=== PATIENT | female | born 1990 | race Caucasian/White ===

== ENCOUNTER 2022-08-31 09:17 | Day surgery (SDC) | payer OTHER ==
[2022-08-30 08:55] LABS: Basophils # (auto) 0 10 ^3/uL (0-0.2); Basophils % (auto) 0.6 % (0.0-2.0); Eosinophils # (auto) 0 10 ^3/uL (0-0.8); Eosinophils % (auto) 0.9 % (0.0-7.0); Hematocrit 39.8 % (36.0-46.0); Hemoglobin 13.4 g/dL (12.2-16.2); Lymphocytes # (auto) 1.4 10 ^3/uL (0.4-5.4); Lymphocytes % (auto) 28.5 % (10.0-50.0); Mean Corpuscular Hemoglobin 28.2 pg (28.0-32.0); Mean Corpuscular Hgb Conc. 33.7 g/dL (32.0-36.0); Mean Corpuscular Volume 83.5 fL (80.0-100.0); Monocytes # (auto) 0.3 10 ^3/uL (0-1.3); Monocytes % (auto) 6.4 % (0.0-12.0); Neutrophils % (auto) 63.6 % (37.0-80.0); Red Blood Cells 4.76 10^6/uL (4.0-5.20); Red Cell Distribution Width 12.7 % (11.8-14.3); White Blood Cell 4.8 10^3/uL (4.4-10.8)
[2022-08-30 09:35] LABS: Partial Thromboplastin Time 27.1 sec (24.6-33.4)
[2022-08-30 09:43] LABS: Albumin 4.1 g/dL (3.4-5.0); Calcium 8.7 mg/dL (8.5-10.1); Potassium 4.1 mmol/L (3.5-5.1)
[2022-08-30 09:46] LABS: BUN/Creatinine Ratio 13.7; Bilirubin, Total 0.3 mg/dL (0.2-1.0); Total Protein 7.4 g/dL (6.4-8.2)
[~2022-08-31] VITALS: Ht 167.6 cm; Wt 74.4 kg
[~2022-08-31 09:17] MED LIST: OMEP20TA PO
[2022-08-31] MEDS ORDERED: LIDOCAINE VISCOUS 2% 15ML UD ONE (09:43)
[2022-08-31] MEDS: fentaNYL CITRATE 100 MCG/2 ML VL ONE ×2 (10:15→10:19)
[2022-08-31] MEDS: diphenhdrAMINE HCL 50 MG/1 ML VL ONE ×2 (10:15→10:17)
[2022-08-31] MEDS: MIDAZOLAM HCL 2MG/2ML 2ml VIAL (1mg/ml) ONE ×3 (10:15→10:22)
[2022-08-31 11:15] VITALS: BP 126/74
== END 2022-08-31 11:30 | disposition home or self-care (01) ==
LOC: GI 09:17
PROVIDERS: ATTEND Internal Medicine Gastroenterology
DX: K21.9 Gastro-esophageal reflux disease without esophagitis (principal); K29.90 Gastroduodenitis, unspecified, without bleeding; K44.9 Diaphragmatic hernia without obstruction or gangrene; K31.3 Pylorospasm, not elsewhere classified; K29.80 Duodenitis without bleeding; K25.9 Gastric ulcer, unspecified as acute or chronic, without hemorrhage or perforation; K26.9 Duodenal ulcer, unspecified as acute or chronic, without hemorrhage or perforation; Z20.822 Contact with and (suspected) exposure to COVID-19
CPT/HCPCS: 36415; 43239; 80053; 81025; 84702; 85025; 85610; 85730; 88305; 88342; J1200; J2250; J3010; J7030; U0003

== ENCOUNTER → 2022-09-17 | Outpatient (CLI) | payer OTHER ==
[2022-09-17 14:32] LABS: Follicle Stimulating Hormone 8.38 IU/L (SEE BELOW); Leuteinizing Hormone 7.5 IU/L
== END | disposition home or self-care (01) ==
LOC: LAB 13:26
PROVIDERS: ATTEND Obstetrics & Gynecology
DX: N91.2 Amenorrhea, unspecified (principal)
CPT/HCPCS: 36415; 82670; 83001; 83002; 84144; 84403; 84443

== ENCOUNTER → 2022-12-21 | Day surgery (SDC) | payer OTHER ==
[2022-12-19 09:23] LABS: Basophils # (auto) 0 10 ^3/uL (0-0.2); Basophils % (auto) 0.4 % (0.0-2.0); Eosinophils # (auto) 0.1 10 ^3/uL (0-0.8); Eosinophils % (auto) 0.9 % (0.0-7.0); Hematocrit 39.6 % (36.0-46.0); Hemoglobin 13.1 g/dL (12.2-16.2); Lymphocytes # (auto) 1.8 10 ^3/uL (0.4-5.4); Lymphocytes % (auto) 30.8 % (10.0-50.0); Mean Corpuscular Hemoglobin 27.5 pg (28.0-32.0); Mean Corpuscular Hgb Conc. 33.1 g/dL (32.0-36.0); Monocytes # (auto) 0.4 10 ^3/uL (0-1.3); Monocytes % (auto) 6.5 % (0.0-12.0); Neutrophils # (auto) 3.5 10 ^3/uL (1.6-8.6); Neutrophils % (auto) 61.4 % (37.0-80.0); Nucleated Red Blood Cells % 0.1 %; Red Blood Cells 4.77 10^6/uL (4.0-5.20); Red Cell Distribution Width 12.9 % (11.8-14.3); White Blood Cell 5.7 10^3/uL (4.4-10.8)
[2022-12-19 09:37] LABS: INR 1.02 (0.9-1.15); Partial Thromboplastin Time 27.1 sec (24.6-33.4)
[2022-12-19 09:51] LABS: Calcium 8.6 mg/dL (8.5-10.1); Potassium 3.9 mmol/L (3.5-5.1)
[2022-12-19 09:56] LABS: Albumin 3.6 g/dL (3.4-5.0); BUN/Creatinine Ratio 12.5 (10.0-20.0); Bilirubin, Total 0.5 mg/dL (0.2-1.0); Total Protein 7.2 g/dL (6.4-8.2)
[~2022-12-21] VITALS: Ht 167.6 cm; Wt 74.8 kg
[2022-12-21] MEDS: diphenhdrAMINE HCL 50 MG/1 ML VL ONE ×2 (12:34→12:36)
[2022-12-21] MEDS: MIDAZOLAM HCL 2MG/2ML 2ml VIAL (1mg/ml) ONE ×4 (12:34→12:42)
[2022-12-21] MEDS: fentaNYL CITRATE 100 MCG/2 ML VL ONE ×4 (12:34→12:45)
[2022-12-21 14:00] VITALS: BP 113/76
== END | disposition home or self-care (01) ==
LOC: GI 10:13
PROVIDERS: ATTEND Internal Medicine Gastroenterology
DX: R14.0 Abdominal distension (gaseous) (principal); K64.8 Other hemorrhoids; Q43.8 Other specified congenital malformations of intestine; Z80.0 Family history of malignant neoplasm of digestive organs; K63.5 Polyp of colon
CPT/HCPCS: 36415; 45380; 80053; 84702; 85025; 85610; 85730; J1200; J2250; J3010; 99152; 99153